=== PATIENT | male | born 1975 | race Asian ===

== ENCOUNTER → 2023-12-25 11:26 | Outpatient (CLI) | payer BC, SELFPAY ==
--- NOTE | 2023-12-25 11:30 | DI.RAD.S_ITS ---
PROCEDURE: XR RIBS LT MIN 3V W CXR1V INDICATIONS: Left rib pain TECHNIQUE: 2 views of the ribs were acquired, along with a single view chest. COMPARISON: None. FINDINGS: Surgical changes and devices: None. Bones and chest wall: No fractures or dislocations. No suspicious bony lesions. Overlying soft tissues appear unremarkable. Lungs and pleura: No pleural effusions or pneumothorax. Lungs appear clear. Mediastinum: Mediastinal contours appear normal. Heart size is normal. IMPRESSION: No displaced rib fracture or pneumothorax. Dictated by: Fawad Curran M.D. on 12/25/2023 at 14:26 Approved by: Fawad Curran M.D. on 12/25/2023 at 14:27
== END ==
LOC: RAD 11:30
PROVIDERS: Referring Provider Nurse Practitioner Family; Visit Provider Nurse Practitioner Family
DX: R07.81 Pleurodynia (principal)
CPT/HCPCS: 71101

== ENCOUNTER → 2023-12-30 10:29 | Outpatient (CLI) | payer BC, SELFPAY ==
[2023-12-30 11:16] LABS: Influenza A - CEPHEID Flu A NEGATIVE (NEGATIVE); Influenza B - CEPHEID Flu B NEGATIVE (NEGATIVE); Respiratory Syncytial Virus Negative (Negative)
[2023-12-30 11:26] LABS: COVID-19 CEPHEID 4-PLEX PCR Negative (Negative)
== END ==
PROVIDERS: Visit Provider Physician Assistant Medical
DX: R05.1 Acute cough (principal)
CPT/HCPCS: 0241U

== ENCOUNTER 2024-08-19 13:59 | Day surgery (SDC) | payer BC, SELFPAY ==
[2024-08-19 14:18] VITALS: BP 125/79; PULSE 83; RESP 16; TEMP 36.6; O2SAT 99
--- NOTE | 2024-08-19 14:47 | P.HP_ITS ---
History of Present Illness History of Present Illness Date Patient Seen: 08/19/24 Time Patient Seen: 14:47 Chief complaint: [facility] Narrative: 48-year-old male here for 1st time screening colonoscopy. No family history of colon cancer. No abdominal concerns today. [facility] Medical History Chicken pox (~1983) Well adult exam Family History Father Diabetes mellitus Social History Smoking Status: Never smoker alcohol intake: never Meds Home Medications and Allergies Home Medications Medication Instructions Recorded Confirmed Type sodium,potassium,mag sulfates 17.5 See Rx Instructions PO .COMPLEX 07/22/24 Rx gram-3.13 gram-1.6 gram oral soln #354 mL (Suprep Bowel Prep Kit) Allergies Allergy/AdvReac Type Severity Reaction Status Date / Time No Known Drug Allergies Allergy Verified 08/19/24 14:12 Exam Vital Signs (past 8 hours): - 08/19/24 14:18 Temperature 97.9 F Pulse Rate 83 Respiratory Rate 16 Blood Pressure 125/79 Pulse Oximetry 99 Narrative Exam Narrative: General adult man alert oriented no acute distress Chest nonlabored respiration Extremities warm well perfused Assessment & Plan Assessment & Plan narrative: The patient requires colorectal screening and colonoscopy is recommended. Technical details were discussed. Risks, benefits, alternatives explained. Risks including but not limited to myocardial infarction, aspiration, bleeding, pain, missed lesion, incomplete examination, need for further radiographic studies, intestinal injury, and need for major abdominal surgery were discussed. All questions were answered to their satisfaction, and they are in agreement with this plan. Time-Based Coding :: [TOTAL MINUTES] spent with patient and on the chart (including review of chart, obtaining history, exam, reviewing outside data, placing orders, documenting exa m and treatment plan, and counseling patient) on [DATE].
--- NOTE | 2024-08-19 14:50 | P.OP.COLON_ITS ---
Operative Date/Time/Diagnoses Date of procedure: 08/19/24 Time of procedure: 14:50 Pre-op diagnosis: Colorectal screening Procedure & Clinicians Study performed: Screening colonoscopy Same procedure as scheduled: Yes Indications: Screening Surgeon: Tim Noble Procedure Notes Procedure in detail: The history and physical was performed/updated and the patient is ASA class is 1. The procedure was discussed in detail with the patient. Potential risks complications including infection, bleeding, missed diagnosis, perforation, need for surgery, and were explained. Their questions were answered and informed consent was obtained. Patient was brought to the procedure room and placed standard monitoring equipment. The patient's vital signs were monitored continuously throughout the entire procedure. Prior to starting time-out was performed. The patient was placed in the left lateral recumbent position. Procedural sedation was administered by anesthesia. Examination began with a thorough inspection of the perianal area there was no evidence of fissures, fistulae, external hemorrhoids or cutaneous malignancy. The colonoscopy scope was then placed into the anal canal and was advanced to the cecum, which was identified by the ileocecal valve, the appendiceal orifice and the confluence of the taenia. The scope was then slowly withdrawn examining colon thoroughly in all directions, irrigating it of any residual stool. The scope was retroflexed within the rectum The patient tolerated the procedure well. They will be discharged once criteria are met. The prep was of good/excellent quality. The withdrawl time was 7 minutes. FINDINGS * Unremarkable colonoscopy. Normal healthy colonic mucosa without mass or polyps. Specimen(s): none sent Impression: Normal colonoscopy Post-procedure Recommendations: Colonoscopy in 10 years Disposition: same day surgery
[2024-08-19 15:10] VITALS: BP 89/58; PULSE 90; RESP 21; TEMP 36.2; O2SAT 95
[2024-08-19 15:15] VITALS: BP 91/58; PULSE 85; RESP 20; TEMP 36.2; O2SAT 96
[2024-08-19 15:21] VITALS: BP 99/66; PULSE 90; RESP 20; TEMP 36.2; O2SAT 96
== END 2024-08-19 15:38 | disposition home or self-care (01) ==
PROVIDERS: PCP Family Medicine; Referring Provider Surgery; Visit Provider Surgery
PROC: 0DJD8ZZ Inspection of Lower Intestinal Tract, Via Natural or Artificial Opening Endoscopic (ICD-10-PCS; CPT 45378; principal; 2024-08-19 15:15)
DX: Z12.11 Encounter for screening for malignant neoplasm of colon (principal)
CPT/HCPCS: 45378; J2704